=== PATIENT | female | born 1990 | race African-American/Black ===

== ENCOUNTER 2018-12-06 16:19 | Emergency (ER) | payer OTHER ==
[~2018-12-06] VITALS: Ht 165.1 cm; Wt 62.7 kg
[2018-12-06] MEDS ORDERED: VITA1TAB23 PO (16:32)
[2018-12-06] MEDS ORDERED: CALC12504 PO (16:32)
[2018-12-06] MEDS ORDERED: TETRACAINE 0.5% OPHTH SOLN 4ML OU ONE (19:15)
[2018-12-06] MEDS ORDERED: FLUORESCEIN OPHTH 1 MG STRIP OD ONE (19:30)
[2018-12-06] MEDS ORDERED: ERYTHROMYCIN OPHTH OINT OD ONE (19:45)
[2018-12-06] MEDS ORDERED: IBUPROFEN 600 MG TAB PO ONE (19:45)
[2018-12-06] MEDS ORDERED: ERYTOIN8 OD (19:46)
[2018-12-06] MEDS ORDERED: IBUP-1022 PO (19:46)
[2018-12-06 20:12] VITALS: BP 126/77
== END 2018-12-06 20:28 | disposition home or self-care (01) ==
LOC: M ED 16:19
DX: S05.01XA Injury of conjunctiva and corneal abrasion without foreign body, right eye, initial encounter (principal); X58.XXXA Exposure to other specified factors, initial encounter; Y92.9 Unspecified place or not applicable; Y93.9 Activity, unspecified; Y99.9 Unspecified external cause status; Z79.899 Other long term (current) drug therapy

== ENCOUNTER 2018-12-23 09:47 | Emergency (ER) | payer OTHER ==
[~2018-12-23] VITALS: Ht 165.1 cm; Wt 62.7 kg
[~2018-12-23 09:47] MED LIST: CALC12504 PO; ERYTOIN8 OD; IBUP-1022 PO; VITA1TAB23 PO
[2018-12-23] MEDS ORDERED: IBUP80TA (09:58)
[2018-12-23] MEDS ORDERED: ALBUTEROL SULFATE 2.5 MG/0.5 ML INH NEB SOLN INH ONE (10:30)
--- NOTE | 2018-12-23 11:10 | REP ---
Chest x-ray: Two views. History: Central chest pain. . Comparison study: No comparison study . Findings: The lungs are well inflated and free of infiltrate. The pleural angles are sharp. The heart size is normal. Pulmonary vasculature is not increased. No significant bony abnormality is seen. Hair braid artifact is seen over the neck on a in the midline and on the left. Impression: Negative chest x-ray. Electronically Signed by Minor Michaels MD 12/23/2018 11:02 A
[2018-12-23] MEDS ORDERED: PEPC1TAB5 PO (11:19)
[2018-12-23] MEDS ORDERED: VENTAER INH (11:19)
[2018-12-23 11:35] VITALS: BP 115/67
--- NOTE | 2018-12-23 21:46 | ECGEPIP ---
Stationary ECG Study [facility] - ED Test Date: 2018-12-23 Pat Name: SERJIO CHEN Department: Room: - Gender: F Employee Communications Coordinator: : 1990 Requested By: TOM DAWSON PA-C. Order Number: [id number] Reading MD: Naomi Motley Measurements Intervals [place] Rate: 60 P: 67 DC: 159 QRS: 56 QRSD: 89 T: 35 QT: 409 QTc: 411 Interpretive Statements SINUS RHYTHM NO PRIOR FOR COMPARISON Electronically Signed On 12-23-2018 21:46:25 EDT by Naomi Motley
== END 2018-12-23 11:43 | disposition home or self-care (01) ==
LOC: M ED 09:47
DX: R07.1 Chest pain on breathing (principal); J30.2 Other seasonal allergic rhinitis

== ENCOUNTER → 2019-03-17 | Outpatient (CLI) | payer OTHER ==
[~2019-03-17] VITALS: Ht 165.1 cm; Wt 66.4 kg
[~2019-03-17] MED LIST changes: +ARTIDRO2 OD; -CALC12504 PO; +CALC500T61 PO; +IBUP80TA PO; +LIDOCAINE 2% W/EPIN INJ 20ML **PRES FREE As Ordered ONE; +MIDAZOLAM INJ 2 MG/2 ML VIAL (J2250) As Ordered ONE; +PEPC1TAB5 PO; +POVIDONE-IODINE 5% OPHTH PREP SOL 30ML As Ordered ONE; +VENTAER INH; +WHEAOIL4 PO; +[UNRECOGNIZED DRUG - OTHER] PA; +fentaNYL 100 MCG/2 ML INJECTION (J3010) As Ordered ONE; +mitoMYcin 0.2 MG/VIAL KIT FOR OPHTHALMIC USE (J7315 PER 0.2MG) As Ordered ONE; +prenatal otc
[2019-03-17 12:29] VITALS: BP 112/66
[2019-03-17 12:35] LABS: URINE PREG TEST POSITIVE (NEGATIVE)
== END ==
LOC: M SDC 11:07 → EDSTATUS 14:25
PROVIDERS: ATTEND Ophthalmology
DX: H11.002 Unspecified pterygium of left eye (principal); Z53.8 Procedure and treatment not carried out for other reasons

== ENCOUNTER 2019-04-04 09:33 | Emergency (ER) | payer OTHER ==
[~2019-04-04] VITALS: Ht 165.1 cm; Wt 69.5 kg
[~2019-04-04 09:33] MED LIST changes: -LIDOCAINE 2% W/EPIN INJ 20ML **PRES FREE As Ordered ONE; -MIDAZOLAM INJ 2 MG/2 ML VIAL (J2250) As Ordered ONE; -POVIDONE-IODINE 5% OPHTH PREP SOL 30ML As Ordered ONE; -fentaNYL 100 MCG/2 ML INJECTION (J3010) As Ordered ONE; -mitoMYcin 0.2 MG/VIAL KIT FOR OPHTHALMIC USE (J7315 PER 0.2MG) As Ordered ONE; -prenatal otc
[2019-04-04] MEDS ORDERED: prenatal otc (09:41)
[2019-04-04 12:42] LABS: CHLAMYDIA DNA AMPLIFICATION NEGATIVE (NEGATIVE); GC DNA AMPLIFICATION NEGATIVE (NEGATIVE)
--- NOTE | 2019-04-04 13:31 | REP ---
First trimester obstetric ultrasound for pelvic pain on the left.: There are no comparison studies. The studies performed transabdominal and Doppler ultrasound assessment. There is an intrauterine gestational sac with a pole and normal size yolk sac. The yolk sac measures 2.5 mm in diameter. The pole crown-rump length is 0.7 cm. This corresponds to a gestational age of 6 weeks 3 days. The CYNTHIA is 11/25/2019. There is no subchorionic hematoma. There is a 1.9 cm right ovarian cyst, likely a corpus luteum. There is vascular flow in both ovaries. The Doppler resistive index of the parenchymal arteries in the right ovary is 0.41 and the left ovary could not be obtained, however, there is a left ovarian vascular flow with color Doppler assessment. There is no subchorionic hematoma. There is no free fluid in the pelvis. Electronically Signed by Donnell Damon MD 04/04/2019 01:22 P
[2019-04-04 13:55] VITALS: BP 103/59
== END 2019-04-04 14:24 | disposition home or self-care (01) ==
LOC: M ED 09:33
DX: O99.89 Other specified diseases and conditions complicating pregnancy, childbirth and the puerperium (principal); R10.2 Pelvic and perineal pain; Z3A.00 Weeks of gestation of pregnancy not specified

== ENCOUNTER 2019-11-23 15:12 | Inpatient (IN) | payer OTHER ==
[~2019-11-23] VITALS: Ht 165.1 cm; Wt 79.4 kg
[~2019-11-23 15:12] MED LIST changes: -ARTIDRO2 OD; +POLYOPD OD; +prenatal otc
[2019-11-23] MEDS ORDERED: LR 1,000 ML IV SCH (16:41)
[2019-11-23] MEDS ORDERED: PENICILLIN G POTASSIUM IV 5 MU in D5W MINI-BAG PLUS 100 ML IV STA (16:41)
[2019-11-23] MEDS ORDERED: LACTATED RINGER'S 1000 ML IV STA (16:41)
[2019-11-23 17:05] LABS: HEMATOCRIT 35.4 % (36.0-47.0); HEMOGLOBIN 11.8 g/dl (12.0-15.5); MEAN CORPUSCULAR HEMOGLOBIN 31.1 pg (27.0-33.0); MEAN CORPUSCULAR HGB CONC 33.3 g/dl (32.0-36.5); MEAN CORPUSCULAR VOLUME 93.4 fl (80.0-96.0); PLATELET COUNT, AUTOMATED 268 10^3/uL (150-450); RED BLOOD COUNT 3.79 10^6/uL (4.00-5.40); WHITE BLOOD COUNT 12.5 10^3/uL (4.0-10.0)
--- NOTE | 2019-11-23 17:15 | HPEPDOC ---
Obstetrical History & Physical General Date of Admission Nov 23, 2019 at 16:44 Primary Care Physician: A History of Present Illness The patient is a 29-year-old @ 39+5wks gestation presents with regular contractions. denies LOF/VB. 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 BREAST: . ABDOMEN: Gravid and non-tender to touch. FETUS: fetus is vertex (VTX) by Joe and by KEYUR HEART RATE: Regular rate and rhythm. LUNGS: Clear to auscultation (CTA). EXTREMITIES: No edema/erythema/tenderness. EFW: 3600gm Laboratory Data 24H LABS Laboratory Tests 2 11/23/19 16:49: Serology Scanned Report Hepatitis B Testing Pertinent Laboratoy Data Blood Type: B+ RBC Antibody Screen: Negative HIV: Negative Hepatitis B: Negative Rapid Plasma Reagin: Nonreactive Rubella: Immune Chlamydia/Gonorrhea: Negative Group B Streptococcus: Positive Anatomy Ultrasound Placenta Location: Anterior Normal Anatomy: Yes Placenta Previa: No Vaginal Examination Dilation: 6 cm Effacement: 80% Cervical Consistency: Soft Presentation: Cephalic presentation (by TAUS) Assessment Heart Rate (FHR): 140 Variability: Moderate Accelerations: Present Decelerations: None Tocometer Contractions: Yes Frequency: every 1-3 min. Assessment/Plan Assessment patient is a 29 yo @ 39+5wks in labor. Admit to L&D. Discussed internal and external monitoring. Discussed risk of emergent section, infection requiring iv antibiotics and extended hospital stay, bleeding requiring need for surgery and blood transfusion and associated risk, use of forceps or vacuums, vaginal laceration requiring repair. Plan Admit and orient. Filling Separator and consent. Diet: clears Group B Streptococcus (GBS) positive Labs and intravenous (IV) per unit protocol. anesthesia consult. pelvis proven. MARIA LUISA EVANS DO Nov 23, 2019 17:15
[2019-11-23] MEDS ORDERED: FENTANYL 2MCG/ML ROPIVACAINE 0.2% IN 0.9% NACL 100ML IVBAG As Ordered ONE ×2 (17:33→18:40)
[2019-11-23] MEDS ORDERED: FENTANYL/ROPIVACAINE/NACL BAG 100 ML EPIDURAL SCH (17:42)
[2019-11-23] MEDS ORDERED: LACTATED RINGER'S 1000 ML IV PRN (17:42)
[2019-11-23] MEDS ORDERED: diphenhydrAMINE INJ 50MG/ML VIAL (J1200) IV PRN (17:42)
[2019-11-23] MEDS ORDERED: EPIDURAL COMMENT XX SCH (17:42)
[2019-11-23] MEDS ORDERED: REFRIGERATOR IV KEYS XX PRN (17:42)
[2019-11-23] MEDS ORDERED: ePHEDrine SULFATE 25 MG/5 ML(5MG/ML) SYRINGE IV PRN (17:42)
[2019-11-23] MEDS ORDERED: ONDANSETRON 4MG/2ML VIAL (J2405) IV PRN (17:42)
[2019-11-23] MEDS ORDERED: NALOXONE INJ 0.4 MG/1 ML VIAL (J2310) IV PRN (17:42)
[2019-11-23] MEDS ORDERED: EPIDURAL/PCA KEYS XX PRN (17:42)
--- NOTE | 2019-11-23 18:00 | IPNPDOC ---
Text Note Date of Service The patient was seen on 11/23/19. NOTE patient having painful regular contractions. vitals: normal fht: 145/mod erlin/pos accel/no decel toco: ctx q 3-5mins ce: c/c/+3, AROM MEC a/p patient in second stage of labor. start pushing. VS,Fishbone, I+O VS, Fishbone, I+O Laboratory Tests 11/23/19 16:53 MARIA LUISA EVANS DO Nov 23, 2019 18:00
--- NOTE | 2019-11-23 18:19 | IPNPDOC ---
Text Note Date of Service The patient was seen on 11/23/19. NOTE Patient feels urge to push. rechecked to be anterior lip/c/-1. patient not in second stage yet. hold off on pushing. VS,Siddhartha, I+O VS, Fishbone, I+O Laboratory Tests 11/23/19 16:53 MARIA LUISA EVANS DO Nov 23, 2019 18:19
[2019-11-23] MEDS ORDERED: OXYTOCIN 30 UNITS IN 0.9% NaCl 500ML IV BAG (J2590) As Ordered ONE (19:24)
--- NOTE | 2019-11-23 19:38 | IPNPDOC ---
Text Note Date of Service The patient was seen on 11/23/19. NOTE come to assess patient with heart tracing showing down. patient rece ntly had epidural started. vitals: normal fht: 80s ce: anterior lip/c/0 station., FSE placed. oxygen started, patient repositioned. fht: 145/mod erlin/no accel/no decel a/p patient in active labor, fht improved with intrauterine resuscitation. arroyo placed. will recheck in 1hr. VS,[place]remain[place], I+O VS, Fishbone, I+O Laboratory Tests 11/23/19 16:53 MARIA LUISA EVANS DO Nov 23, 2019 19:38
--- NOTE | 2019-11-23 20:47 | IPNPDOC ---
Text Note Date of Service The patient was seen on 11/23/19. NOTE patient is comfortable. vitals: normal fht: 150/mod erlin/no accel/occasional variable decel toco: ctx q5mins ce: c/c+2 a/p patient in second stage of labor. patient desires to be PCN complete before she starts pushing. Will start pushing in about 30 minutes. DO Aishwarya VS,Siddhartha, I+O VS, [place]remain[place], I+O Laboratory Tests 11/23/19 16:53 MARIA LUISA EVANS DO Nov 23, 2019 20:47
[2019-11-23] MEDS ORDERED: PENICILLIN G POTASSIUM IV 2.5 MU in IV 1 EA IV SCH (21:00)
[2019-11-23] MEDS ORDERED: OXYTOCIN DRIP 30 UNITS in IV 1 EA IV SCH (21:59)
[2019-11-23] MEDS ORDERED: IBUPROFEN 800 MG TAB PO PRN (22:00)
[2019-11-23] MEDS ORDERED: ACETAMINOPHEN TAB 650MG DOSE (2X325MG) PO PRN (22:00)
[2019-11-23] MEDS ORDERED: MEASLES,MUMPS,RUBELLA VACCINE INJ (MMR-II) (90707) SC SCH (22:00)
[2019-11-23] MEDS ORDERED: DIBUCAINE 1% OINTMENT 30GM TOP PRN (22:00)
[2019-11-23] MEDS ORDERED: RHOGAM 300 MCG (1500 IU) INJ (J2790) IM SCH (22:00)
--- NOTE | 2019-11-24 00:32 | DNPDOC ---
[facility] Delivery Note Delivery Note DATE OF DELIVERY: 11/23/2019 PREDELIVERY DIAGNOSIS: 39+5/7 weeks' gestation and labor. POST DELIVERY DIAGNOSIS: Delivered. PROCEDURE: FORCEPS ASSISTED VAGINAL DELIVERY. EXTRUDER TENDER: Dr. Chelsey Neff ANESTHESIA: Epidural. ESTIMATED BLOOD LOSS: 250 mL. FINDINGS: 3350gm, Score 8/9 DELIVERY SUMMARY: Counseled Low forceps delivery - VERBAL Indication: none reassuring heart tracing Checklist Cervix: C/C/+3 Presentation, Position: ROP Anesthesia: functional epidural Membranes ruptured: yes Pelvis: adequate by clinical pelvimetry for EFW 3700 gm Episiotomy: No Bladder: arroyo recently removed C/Section available: Yes C/Section offered: Yes Consent pt: Yes - verbal Provider: Dr. Chelsey Neff FHT: 145 / min variability / no accel / recurrent variable decel down to 60's with slow return to baseline CTX: every 3 mins Counseled patient on indication/alternative and risks of forceps delivery: maternal vaginal lacerations, laceration/bruising, internal bleeding as well as permanent damages, episiotomy or extension, possible need for ce sarean section. Questions answered, patient desires to proceed. Brooks forceps checked for integrity and match. Dorsal lithotomy position. Forceps placed and adjusted. Placement checked confirmed correct placement perpendicular to sagittal suture. Head delivered over 1 set of contractions in OP position. Forceps removed. Baby restituted ROT. Anterior (left) shoulder delivered with gentle guidance. Posterior shoulder delivered with gentle upward guidance. Body followed easily there-after. Baby with vigorous cries and placed on maternal abdomen. FSE removed. Cord clamped x 2 and cut. Pitocin bolus started. Placenta delivered spontaneously shortly after baby delivered. Placenta intact, three vessels cord. Fundus massaged to firm. Inspection of vagina and cervix revealed first degree repaired in the normal fashion. Fundus remains firm with light bleeding. Baby brought to NICU for monitoring per hospital protocol after operative vaginal delivery. EBL 250cc. DO CRISTINA Neff LUAT N. DO Nov 23, 2019 22:06
[2019-11-24 01:05] VITALS: BP 124/62
[2019-11-24 06:00] VITALS: BP 120/66
--- NOTE | 2019-11-24 08:41 | IPNPDOC ---
Progress Note Date of Service: Nov 24, 2019 Day#: 1 Progress Note SUBJECT: Patient is a 29 yo s/p FAVD ppd #1. Patient without concerns today. She has been ambulating, voiding spontaneously without issue and tolerating regular diet. Breast feeding without issue. Baby was observed in NICU for 4hrs due to forceps delivery and is now with mom. Patient plans on barrier contraceptives. OBJECTIVE: VITAL SIGNS: Within normal limits, afebrile. Alert and oriented times three. Abdomen: Fundus firm at U-2. Soft, NTTP. LE: no edema/erythema/tenderness A/P ppd #1, doing well. encourage BF. contraceptive counseling. discussed /discharge planning. con leave sadie provided to patient. anticipated d/c home tomorrow. Aishwarya, VS, I&O, 24H, Fishbone Vital Signs/I&O Vital Signs Date Time Temp Pulse Resp B/P (MAP) Pulse Ox O2 Delivery O2 Flow Rate FiO2 11/24/19 06:00 98.7 82 20 120/66 (84) 98 Room Air I&O- Last 24 Hours up to 6 AM 11/24/19 06:00 Output Total 950 ml Balance -950 ml Laboratory Data 24H LABS Laboratory Tests 2 11/23/19 16:49: Serology Scanned Report Hepatitis B Testing 11/23/19 16:53: Nucleated Red Blood Cells % (auto) 0.0, Syphilis Serology NONREACTIVE CBC/BMP Laboratory Tests 11/23/19 16:53 MARIA LUISA EVANS DO Nov 24, 2019 08:41
[2019-11-24] MEDS: DOCUSATE SODIUM 100 MG CAP PO SCH ×2 (08:51→20:44)
[2019-11-24] MEDS: PRENATAL VITAMINS CHEWABLE TABLET PO SCH (08:51)
[2019-11-24] MEDS ORDERED: ACET1TAB55 PO (17:06)
[2019-11-24] MEDS ORDERED: DIBU10OI TOP (17:06)
[2019-11-24] MEDS ORDERED: DOCU100C16 PO (17:06)
[2019-11-24 18:07] VITALS: BP 119/75
[2019-11-25 05:42] VITALS: BP 108/58
--- NOTE | 2019-11-25 07:06 | IPNPDOC ---
Progress Note Date of Service: Nov 25, 2019 Day#: 1 Progress Note SUBJECT: Patient is a 29-year-old 4 now Para 3 status post uncomplicated VAVD with post 1st degree laceration and repair, doing well day # 1. She has been ambulating, voiding spontaneously without issue and tolerating regular diet. Breast feeding without issue. Reports lochia is like a normal period. Patient is ambulating well. Reports some cramping with . Denies any pain. OBJECTIVE: VITAL SIGNS: Within normal limits, afebrile. Alert and oriented times three. Breast nontender and without erythema Breath sounds clear to auscultation. Heart rate: Regular rate and rhythm, no murmurs, rubs or gallops. Abdomen: Fundus firm at U-2. Soft, NTTP. Perineum intact and Minimal lochia. LE: nontender and without edema ASSESSMENT: Patient is a 29-year-old 4 now Para 3 status post uncomplicated VAVD with post 1st degree laceration and repair, doing well day # 1. Vitals within normal limits, afebrile, hemodynamically stab le with no evidence of infection. PLAN: 1. Continue care. 2. Tylenol and Motrin for pain. 3. Encourage breast feeding and ambulation. VS, I&O, 24H, Fishbone Vital Signs/I&O Vital Signs Date Time Temp Pulse Resp B/P (MAP) Pulse Ox O2 Delivery O2 Flow Rate FiO2 11/24/19 06:00 98.7 82 20 120/66 (84) 98 Room Air I&O- Last 24 Hours up to 6 AM 11/24/19 06:00 Output Total 950 ml Balance -950 ml Elicia Damon MD Nov 24, 2019 17:05
[2019-11-25] MEDS: DOCUSATE SODIUM 100 MG CAP PO SCH (08:15)
[2019-11-25] MEDS: PRENATAL VITAMINS CHEWABLE TABLET PO SCH (08:15)
--- NOTE | 2019-11-25 13:25 | OBDS ---
[facility] Obstetrical Discharge Sum. Obstetrical Discharge Summary Date: Nov 25, 2019 : 4 Term: 3 Pre-term: 0 Abortions: 1 Livin Labor Spontaneous labor. Delivery Forcep Assisted Vaginal Delivery on [id number] at 39+5wks, infant 3350g, EBL 250mL, 1st degree perineal laceration. A/P, Post Course List any complications Admission diagnosis: Labor Discharge diagnosis: Forcep Assisted Vaginal Delivery, Routine Condition at Discharge: Stable Discharge Instructions: Standard PP precautions; review emergency return precautions Activity: As tolerated. Diet: Regular Medications: uptwister tender routine PP meds at [place]. Do not take Motrin. Follow-up: Routine PP to be scheduled for 6-8 weeks at [facility]. Other:COVID19 precautions MARIA ANTONIA DE LA CRUZ CNM Nov 25, 2019 13:25
== END 2019-11-25 14:15 | disposition home or self-care (01) | DRG 807 ==
LOC: M LDO 15:12 → M LDI 16:44 → M OBS 11-24 00:35
PROVIDERS: ADMIT Advanced Practice Midwife; ATTEND Obstetrics & Gynecology
PROC: 10D07Z3 Extraction of Products of Conception, Low Forceps, Via Natural or Artificial Opening (ICD-10-PCS; principal; 2019-11-23)
PROC: 10907ZC Drainage of Amniotic Fluid, Therapeutic from Products of Conception, Via Natural or Artificial Opening (ICD-10-PCS; 2019-11-23)
PROC: 0HQ9XZZ Repair Perineum Skin, External Approach (ICD-10-PCS; 2019-11-23)
DX: O99.824 Streptococcus B carrier state complicating childbirth (principal); Z37.0 Single live birth; Z3A.39 39 weeks gestation of pregnancy; O76 Abnormality in fetal heart rate and rhythm complicating labor and delivery; O70.0 First degree perineal laceration during delivery

== ENCOUNTER → 2020-10-15 | Outpatient (REF) | payer OTHER, MEDICAID ==
[~2020-10-15] MED LIST changes: +ACET1TAB55 PO; +ASCO250T20 PO; +DIBU10OI TOP; +DOCU100C16 PO; -VITA1TAB23 PO
[2020-10-15 15:30] LABS: HEMATOCRIT 31.3 % (36.0-47.0); HEMOGLOBIN 9.9 g/dl (12.0-15.5); MEAN CORPUSCULAR HGB CONC 31.6 g/dl (32.0-36.5); MEAN CORPUSCULAR VOLUME 94.8 fl (80.0-96.0); PLATELET COUNT, AUTOMATED 273 10^3/uL (150-450)
== END ==
LOC: M PLALAB 10:53
PROVIDERS: ATTEND Specialist
DX: Z34.83 Encounter for supervision of other normal pregnancy, third trimester (principal)

== ENCOUNTER → 2020-11-13 | Outpatient (CLI) | payer OTHER, MEDICAID | LOC: M LAB 07:13 | PROVIDERS: ATTEND Specialist | DX: Z36.89 Encounter for other specified antenatal screening (principal) | CPT/HCPCS: 36415; 82951; 82952; G0463 ==

== ENCOUNTER → 2020-12-03 | Outpatient (CLI) | payer OTHER, MEDICAID ==
--- NOTE | 2020-12-04 05:34 | REP ---
INDICATION: GROWTH/GEST DIABETES COMPARISON: None. TECHNIQUE: Transabdominal obstetrical ultrasound with color Doppler evaluation. FINDINGS: Examination demonstrates a single live intrauterine in cephalic presentation. motion is identified by technologist. Placenta is noted posterior and grade 3 without evidence for placenta previa or abruption. Amniotic fluid volume is normal. Cervix measures 3.7 cm in length and appears closed.. Gestational age by LMP 33 weeks 1 day with CYNTHIA 01/20/2021. Gestational age by current measurements 34 weeks 0 days with CYNTHIA 01/14/2021. FHR equals 149 beats per minute. BPD: 8.0 cm at 32 weeks 2 days HC: 29.1 cm at 32 weeks 0 days AC: 32.9 cm at 36 weeks 6 days FL: 6.8 cm at 34 weeks 5 days HL: 5.9 cm at 34 weeks 1 day HC/AC: 0.88 Estimated weight 2625 grams (greater than 97thpercentile based on age by CYNTHIA). IMPRESSION: Estimated weight greater than expected based on given CYNTHIA. Correlation is required. <Electronically signed by [place] Saenz > 12/04/20 9830
== END ==
LOC: M WHC 15:30
PROVIDERS: ATTEND Obstetrics & Gynecology
DX: O24.419 Gestational diabetes mellitus in pregnancy, unspecified control (principal); Z3A.33 33 weeks gestation of pregnancy

== ENCOUNTER 2020-12-14 18:54 | Outpatient (CLI) | payer OTHER, MEDICAID ==
[~2020-12-14] VITALS: Ht 165.1 cm; Wt 80.6 kg
[~2020-12-14 18:54] MED LIST changes: -DIBU10OI TOP; +DIBU28OI2 TOP
[2020-12-14 19:41] VITALS: BP 136/71
[2020-12-14] MEDS ORDERED: metFORMIN (GLUCOPHAGE) 500MG TAB PO ONE (20:40)
--- NOTE | 2020-12-14 20:46 | IPNPDOC ---
Text Note Date of Service The patient was seen on 12/14/20. NOTE Outpatient 30yo CYNTHIA 01/20/2021 presents @ 34w5d with complaints of spotting x 2 today on wipe. Denies LOF or active bleeding. Reports good activity. States IC last night. Hx significant for A1GDM this . Missed her f/u appt this week Cat I tracing, no UC Spec exam, cervix visually LTC, no evidence bleeding SVE soft, long, closed, no presenting part in pelvis. Reviewed blood sugar log. 51% are abnormal since her last visit 11/20. Consulted Dr Chavarria. Start metformin 500mg BID. Reviewed dietary habits. Has only eaten once today, rice with sesame chicken and broccoli. Reviewed dietary changes for diabetes in , small protein rich snack/meals every 2-3 hours. Avoid concentrated sweets or simple carbs. Pt and partner verbalized understanding. Given PB toast prior to metformin. Encourage a protein rich meal tonight and parts picker Rx in am Discharged home with instructions. Reviewed need for weekly visits with [facility] starting next week. VS,Fishbone, I+O VS, Fishbone, I+O Vital Signs Date Time Temp Pulse Resp B/P (MAP) Pulse Ox O2 Delivery O2 Flow Rate FiO2 12/14/20 19:41 98.3 88 16 136/71 (92) Room Air Joslyn Macias CNM Dec 14, 2020 20:46
== END 2020-12-14 20:57 | disposition home or self-care (01) ==
LOC: M LDO 18:54
PROVIDERS: ATTEND Advanced Practice Midwife
DX: O46.93 Antepartum hemorrhage, unspecified, third trimester (principal); Z3A.31 31 weeks gestation of pregnancy; O24.420 Gestational diabetes mellitus in childbirth, diet controlled
CPT/HCPCS: 59025; G0378; G0463

== ENCOUNTER → 2020-12-25 | Outpatient (REF) | payer OTHER | LOC: M SFHCWAGY 13:47 | PROVIDERS: ATTEND Obstetrics & Gynecology | DX: Z36.89 Encounter for other specified antenatal screening (principal); Z3A.36 36 weeks gestation of pregnancy ==

== ENCOUNTER → 2020-12-26 | Outpatient (CLI) | payer OTHER, MEDICAID ==
--- NOTE | 2020-12-26 12:19 | REP ---
INDICATION: BPP/GROWTH/DIABETES COMPARISON: None. TECHNIQUE: Transabdominal obstetrical ultrasound with color Doppler evaluation. FINDINGS: Examination demonstrates a single live intrauterine in cephalic presentation. motion is identified by technologist. Placenta is noted posterior and grade 3 without evidence for placenta previa or abruption. Amniotic fluid volume is normal. Cervix measures 4.2 cm in length and appears closed. There is delete that. Gestational age by LMP 36 weeks 3 days with CYNTHIA 01/20/2021. Gestational age by current measurements 37 weeks 6 days with CYNTHIA 01/10/2021. FHR equals 135 beats per minute. BPD: 9.3 cm at 37 weeks 4 days HC: 32.7 cm at 37 weeks 0 days AC: 34.9 cm at 30 weeks 6 days FL: 7.4 cm at 37 weeks 6 days HL: 6.6 cm at 30 weeks 2 days HC/AC: 0.94 Estimated weight 3441 grams (greater than 97thpercentile based on age by 1st ultrasound and EDC). EDISON: 22.9 cm (7.6-24.7) Biophysical profile score: 8/8 IMPRESSION: Single live advanced gestation in cephalic presentation. Greater than expected interval growth is suggested. Amniotic fluid index and biophysical profile score are normal. <Electronically signed by [place] Saenz > 12/26/20 0061
== END ==
LOC: M WHC 10:57
PROVIDERS: ATTEND Obstetrics & Gynecology
DX: O24.430 Gestational diabetes mellitus in the puerperium, diet controlled (principal)

== ENCOUNTER 2021-01-07 07:55 | Inpatient (IN) | payer OTHER, MEDICAID ==
[2021-01-07] VITALS (33 sets, daily range): BP systolic 92–141; BP diastolic 51–76
[~2021-01-07] VITALS: Ht 165.1 cm; Wt 81.1 kg
[2021-01-07] MEDS ORDERED: METF10004 PO (08:19)
[2021-01-07] MEDS ORDERED: METF500T13 PO (08:21)
[2021-01-07] MEDS ORDERED: FERR325T3 PO (08:22)
[2021-01-07] MEDS ORDERED: LACTATED RINGER'S 1000 ML IV STA (08:34)
[2021-01-07] MEDS ORDERED: PENICILLIN G POTASSIUM IV 5 MU in D5W MINI-BAG PLUS 100 ML IV STA ×2 (08:34→18:26)
[2021-01-07] MEDS ORDERED: METHYLERGONOVINE MALEATE 0.2 MG/ML VIAL (J2210) IM PRN (08:35)
[2021-01-07] MEDS ORDERED: OXYTOCIN DRIP 30 UNITS in IV 1 EA IV PRN (08:35)
[2021-01-07] MEDS ORDERED: CARBOPROST TROMETHAMINE 250 MCG/ML AMP IM PRN (08:35)
[2021-01-07] MEDS ORDERED: TRANEXAMIC ACID INJection 1,000 MG in NS 100 ML IV PRN (08:35)
--- NOTE | 2021-01-07 08:43 | HPEPDOC ---
Obstetrical History & Physical General Date of Admission January 07, 2021 at 07:55 Primary Care Physician: EMILIANA ZHONG CNM History of Present Illness Garima is a 30-year-old female who is a at 38.1 weeks gestation with an CYNTHIA of 01/20/21. She initiated care with [facility] and transferred care to [facility] at 26 weeks. Her has been complicated by A2GDM, which has been managed with Metformin 1000 mg BID. She presents to L&D for an induction of labor due to A2GDM. She reports active movement. She denies contractions, vaginal bleeding or leaking of fluid. Information Provided By: Patient Age: 30 : 5 Term: 3 Pre-term: 0 Abortions: 1 Livin Care Care: Good Care Dating Final EDC: January 20, 2021 Final EDC by: LMP EGA at Admission: 38.1 Antepartum Course Diagnos(e)s A2GDM Height (inches): 65 Admission Weight (lbs.): 178 Past Medical History Past Obstetrical History #1: Past Obstetrical History: Primgravida Date of Delivery: Jun 12, 2011 Gestation: 39 Type of Delivery: Spontaneous Vaginal Del. Sex of Infant: Male (7 lbs 9 oz) Complications: Yes (PPH) Past Obstetrical History #2: Past Obstetrical History: Multigravida Date of Delivery: Apr 15, 2015 Gestation: 40 Type of Delivery: Spontaneous Vaginal Del. Sex of Infant: Male (9 lbs) Complications: No Past Obstetrical History #3: Past Obstetrical History: Multigravida Date of Delivery: Nov 13, 2019 Type of Delivery: Spontaneous Vaginal Del. Sex of : Male (7 ;bs 14 oz) Complications: No (forcep delivery) DEAN History: Theraputic , Human papillomavirus(HPV), History of STD, Genital Warts Past Medical History Medical History allergies anxiety and depression Surgical History: Denies/None Family History Significant Family History: Heart disease, Hypertension, Renal disease Social History Marital Status: Family situation: Spouse/partner home Psychosocial History: Anxiety, Depression * Smoker: non-smoker Alcohol: Denies Drugs: denies Allergies Coded Allergies: Pork (Verified Allergy, Mild, raised bumps + rash, 01/07/21) SEAFOOD (Verified Allergy, Mild, schrimp- raised bumps + rash, 01/07/21) Medications Scheduled Docusate Sodium (Docusate Sodium) 100 Mg Capsule, 100 MG PO BID Metformin HCl (Metformin HCl) 1,000 Mg Tablet, 1 TAB PO DAILY Metformin HCl (Metformin HCl) 500 Mg Tablet, 1 TAB PO DAILY Miscellaneous Medications Ferrous Sulfate (Ferrous Sulfate) 325 Mg Tablet.dr, 325 MG PO [ otc] Physical Examination Physical Examination GENERAL: Alert and oriented times three. BREAST: . ABDOMEN: Gravid and non-tender to touch. FETUS: Is vertex (VTX) by sterile vaginal examination (SVE), fetus is vertex (VTX) by Joe. EFW 3900 grams. Proven pelvis for 9 lbs. LUNGS: Clear to auscultation (CTA). EXTREMITIES: No edema. No clonus. Deep tendon reflexes (DTRs) + 2. Vital Signs/I&O Vital Signs Label Value Date Time Patient Temperature 97.7 degrees F 01/07/21 0824 Temperature Source Axillary 01/07/21 0824 Pulse 83 01/07/21 0824 Respiratory Rate 18 bpm 01/07/21 0824 Blood Pressure Assessment 115/64 (81) 01/07/21 0824 Source Automatic Cuff (NIBP) Laboratory Data 24H LABS Laboratory Tests 2 01/07/21 08:34: Bedside Glucose (Misc Panel) 89 Pertinent Laboratoy Data Blood Type: B+ RBC Antibody Screen: Negative HIV: Negative Hepatitis B: Negative Hepatitis C: Negative Rapid Plasma Reagin: Nonreactive Rubella: Immune Chlamydia/Gonorrhea: Negative Group B Streptococcus: Positive Glucose Tolerance Test: 148 Anatomy Ultrasound Ultrasound Date: Dec 26, 2020 Normal Anatomy: Yes Placenta Previa: No Estimated Weight (grams): 3441 Vaginal Examination Dilation: 1cm Effacement: other (thick) Station: -2 Cervical Consistency: Soft Cervical Position: Posterior Presentation: Cephalic presentation Position: Vertex (occiput) Assessment Heart Rate (FHR): 140 Variability: Moderate Accelerations: Positive Decelerations: None Tocometer Contractions: Yes Frequency: irregular Multi-drug resistant Organism: No history of MDRO Assessment/Plan Assessment IUP at 38.1 A2GDM Category I FHR tracing induction of labor GBS positive Plan Admit to L&D OOB ad miracle Diet: regular until IV Pitocin to be started. Fingersticks fasting and 2 hours after meals until active labor. Group B Streptococcus (GBS) positive. Start IV antibiotics per order. Labs and intravenous (IV) per unit protocol. Counseled on Cytotec, arroyo bulb, and IV Pitocin for induction of labor (IOL). Cytotec ordered and to be started. Anesthesia consult per patient's request Lactated Ringers (LR): Bolus 800 mL prior to epidural, then at 125 mL/hr. Anticipate cervical ripening. C-S as appropriate. EMILIANA ZHONG CNM January 07, 2021 08:43
[2021-01-07 09:32] LABS: HEMATOCRIT 34.1 % (36.0-47.0); HEMOGLOBIN 11.3 g/dl (12.0-15.5); MEAN CORPUSCULAR HEMOGLOBIN 31.1 pg (27.0-33.0); MEAN CORPUSCULAR HGB CONC 33.1 g/dl (32.0-36.5); MEAN CORPUSCULAR VOLUME 93.9 fl (80.0-96.0); PLATELET COUNT, AUTOMATED 273 10^3/uL (150-450); RED BLOOD COUNT 3.63 10^6/uL (4.00-5.40); WHITE BLOOD COUNT 9.3 10^3/uL (4.0-10.0)
[2021-01-07] MEDS: miSOPROStol 50MCG 1/2 TABLET PO SCH ×2 (10:12→14:30)
[2021-01-07 12:04] LABS: HIV 1&2 SCREEN CENTAUR NEGATIVE (NEGATIVE)
[2021-01-07] MEDS ORDERED: PENICILLIN G POTASSIUM IV 2.5 MU in IV 1 EA IV SCH (12:35)
[2021-01-07 13:36] LABS: HEPATITIS C VIRUS ABY INDEX 0.2 INDEX (<0.8)
[2021-01-07 14:58] LABS: CHLAMYDIA DNA AMPLIFICATION NEGATIVE (NEGATIVE); GC DNA AMPLIFICATION NEGATIVE (NEGATIVE)
[2021-01-07] MEDS ORDERED: metFORMIN (GLUCOPHAGE) 500MG TAB PO SCH (18:00)
[2021-01-07] MEDS ORDERED: FENTANYL 2MCG/ML ROPIVACAINE 0.2% IN 0.9% NACL 100ML IVBAG As Ordered ONE (19:25)
--- NOTE | 2021-01-07 19:57 | IPNPDOC ---
Obstetrical Progress Note Date of Service January 07, 2021 Subjective Patient requesting an epidural. Objective Vital Signs Date Time Temp Pulse Resp B/P (MAP) Pulse Ox O2 Delivery O2 Flow Rate FiO2 01/07/21 18:26 98.7 77 20 141/63 (89) Assessment Heart Rate (FHR): 140 Variability: Moderate Accelerations: Positive Decelerations: None Heart Rate Tracing: Category I Tocometer Contractions: Yes Frequency: regular, every 2-5 min. Sterile Vaginal Examination Dilation: 6 cm Effacement (%): 100% Station: -2 Cervical Position: Anterior Postion/Presentation: Cephalic presentation Assessment and Plan Age: 30 EGA at Admission: 38.1 Status: Reassuring Group B Streptococcus: Positive Anticipate: Vaginal Delivery Additional Comments Anesthesia notified. EMILIANA ZHONG CNM January 07, 2021 19:56
[2021-01-07] MEDS ORDERED: ANUSOL HC CREAM 30GM TOP PRN (21:15)
[2021-01-07] MEDS ORDERED: IBUPROFEN 600MG TAB PO PRN (21:15)
[2021-01-07] MEDS ORDERED: MEASLES,MUMPS,RUBELLA VACCINE INJ (MMR-II) (90707) SC SCH (21:15)
[2021-01-07] MEDS ORDERED: ACETAMINOPHEN 500 MG TAB PO PRN (21:15)
[2021-01-07] MEDS ORDERED: DIBUCAINE 1% OINTMENT 30GM TOP PRN (21:15)
[2021-01-07] MEDS ORDERED: METHYLERGONOVINE MALEATE 0.2 MG TAB PO PRN (21:15)
[2021-01-07] MEDS ORDERED: RHOGAM 300 MCG (1500 IU) INJ (J2790) IM SCH (21:15)
[2021-01-07] MEDS ORDERED: DOCUSATE SODIUM 100MG CAPSULE PO PRN (21:15)
--- NOTE | 2021-01-07 21:27 | DNPDOC ---
[facility] Delivery Note Delivery Note DATE OF DELIVERY: 01/07/21 at 2046 PREDELIVERY DIAGNOSIS: 38-1/7 weeks' gestation and induction of labor. POST DELIVERY DIAGNOSIS: Delivered. PROCEDURE: Spontaneous vaginal delivery. TEASEL GIG OPERATOR: Emiliana Samano CNM, MANE ANESTHESIA: epidural. ESTIMATED BLOOD LOSS: 250 mL. FINDINGS: 7 pounds 6 ounces; 3350 grams; female infant, Score 8/9, A2GDM, meconium fluid. DELIVERY SUMMARY: Garima is a 30-year-old female who is now a who presented to L&D for induction of labor for A2GDM. She received 2 doses of Cytotec for induction of labor and requested an epidural for pain management. She progressed to fully dilated at 2041 and pushed to a living female in the OA position with restitution to LOT. The mouth was suctioned with a bulb suction. The anterior shoulder delivered with ease and the corpus immediately followed. The baby was placed on the maternal abdomen active and crying with stimulation. The cord was clamped x2 after 1 minute and cut by the FOB. A 3-vessel cord was noted. The placenta delivered spontaneously and intact at 2050. Uterine hemostasis was achieved via rapid infusion of IV Pitocin and fundal massage. The vagina, cervix, and perineum were inspected and found to be intact. Mom plans to breastfeed. They are naming her Bijoux. Both mom and baby are in stable condition. All counts of instruments and sponges are correct. EMILIANA SAMANO CNM January 07, 2021 21:27
[2021-01-07] MEDS: ACETAMINOPHEN TAB 650MG DOSE (2X325MG) PO PRN (22:05)
[2021-01-07] MEDS: IBUPROFEN 800 MG TAB PO PRN (22:05)
[2021-01-08 06:00] VITALS: BP 107/54
[2021-01-08] MEDS: IBUPROFEN 800 MG TAB PO PRN (06:10)
[2021-01-08] MEDS: PRENATAL VITAMINS CHEWABLE TABLET PO SCH (08:32)
[2021-01-08] MEDS ORDERED: LR 1,000 ML IV SCH (08:45)
[2021-01-08] MEDS ORDERED: FIORICET TAB PO PRN (09:10)
--- NOTE | 2021-01-08 09:16 | IPNPDOC ---
Progress Note Date of Service: January 08, 2021 Day#: 1 Progress Note SUBJECT: Garima is a 30-year-old female who is now a who presented for an induction of labor at 38.1 weeks gestation for A2GDM. She had an vaginal delivery complicated by meconium fluid. She reports her bleeding is "normal." States she has a reed time lifting head or moving in bed over the last 3-4 hours. Anesthesia is aware and will do a blood patch. She has been voiding. OBJECTIVE: VITAL SIGNS: Within normal limits, afebrile. Alert and oriented times three. Lying in bed on her side. Respiratory rate is regular without use of accessory muscles. Abdomen: Fundus firm at U. Soft, NTTP. Moderate lochia. ASSESSMENT: Day 1 , spinal headache PLAN: 1. Anesthesia has been notified and patient is NPO. She is set for a blood patch today. 2. Continue supportive nursing care. 3. LR at 250 cc/hr. VS, I&O, 24H, Fishbone Vital Signs/I&O Vital Signs Date Time Temp Pulse Resp B/P (MAP) Pulse Ox O2 Delivery O2 Flow Rate FiO2 01/08/21 06:00 98.1 61 18 107/54 (71) 97 Room Air I&O- Last 24 Hours up to 6 AM 01/08/21 06:00 Intake Total 1350 ml Output Total 2950 ml Balance -1600 ml Laboratory Data 24H LABS Laboratory Tests 2 01/07/21 09:17: Hepatitis B Surface Antigen NEGATIVEL, HIV Antigen/Antibody Combo Qual NEGATIVE 01/07/21 12:30: Serology Scanned Report Hepatitis B Testing 01/07/21 12:32: Chlamydia trachomatis DNA ([facility]) NEGATIVE, Neisseria gonorrhoeae DNA ([facility]) NEGATIVE 01/07/21 14:24: Bedside Glucose (Misc Panel) 101 EMILIANA ZHONG CNM January 08, 2021 09:16
[2021-01-08] MEDS: FIORICET TAB PO PRN ×3 (09:19→19:53)
[2021-01-08 18:00] VITALS: BP 121/64
[2021-01-08] MEDS: ACETAMINOPHEN TAB 650MG DOSE (2X325MG) PO PRN (20:50)
[2021-01-09] MEDS: FIORICET TAB PO PRN ×3 (00:20→15:59)
[2021-01-09 06:00] VITALS: BP 110/68
--- NOTE | 2021-01-09 07:29 | IPNPDOC ---
Progress Note Date of Service: January 09, 2021 Day#: 2 Progress Note SUBJECT: Status post . She has been ambulating, voiding spontaneously without issue and tolerating regular diet. Lochia decreasing/minimal. Pain is well-controlled. Denies headache, visual changes, right upper quadrant pain, shortness breath or chest pain. OBJECTIVE: VITAL SIGNS: Within normal limits, afebrile. Alert and oriented times three. Abdomen: Fundus firm at U-2. Soft, NTTP. ASSESSMENT: Status post uncomplicated spontaneous vaginal delivery. Vitals within normal limits, afebrile, hemodynamically stable with no evidence of infection. PLAN: Discharge to home today. Tylenol and Motrin for pain. Routine instructions/precautions reviewed. Routine PP visit in 6 weeks in clinic. VS, I&O, 24H, Fishbone Vital Signs/I&O Vital Signs Date Time Temp Pulse Resp B/P (MAP) Pulse Ox O2 Delivery O2 Flow Rate FiO2 01/09/21 06:00 98.1 64 18 110/68 (82) 97 Room Air SUZETTE MULTANI DO January 09, 2021 07:29
[2021-01-09] MEDS: PRENATAL VITAMINS CHEWABLE TABLET PO SCH (07:36)
== END 2021-01-09 16:05 | disposition home or self-care (01) | DRG 807 ==
LOC: M LDI 07:55 → M OBS 23:02
PROVIDERS: ADMIT Advanced Practice Midwife; ATTEND Advanced Practice Midwife
PROC: 10E0XZZ Delivery of Products of Conception, External Approach (ICD-10-PCS; principal; 2021-01-07)
PROC: 3E033VJ Introduction of Other Hormone into Peripheral Vein, Percutaneous Approach (ICD-10-PCS; 2021-01-07)
PROC: 3E0R3GC Introduction of Other Therapeutic Substance into Spinal Canal, Percutaneous Approach (ICD-10-PCS; 2021-01-08)
DX: O24.425 Gestational diabetes mellitus in childbirth, controlled by oral hypoglycemic drugs (principal); Z37.0 Single live birth; Z3A.38 38 weeks gestation of pregnancy; O99.824 Streptococcus B carrier state complicating childbirth; O77.0 Labor and delivery complicated by meconium in amniotic fluid; O89.4 Spinal and epidural anesthesia-induced headache during the puerperium

== ENCOUNTER → 2021-03-05 | Outpatient (CLI) | payer OTHER, MEDICAID ==
[~2021-03-05] MED LIST changes: +FERR325T3 PO; +METF10004 PO; +METF500T13 PO
== END ==
LOC: M LAB 07:13
PROVIDERS: ATTEND Advanced Practice Midwife
DX: Z39.2 Encounter for routine postpartum follow-up (principal); Z86.32 Personal history of gestational diabetes